=== PATIENT | female | born 1990 | race Caucasian/White ===

== ENCOUNTER 2018-07-12 22:30 | Emergency (ER) | payer SELFPAY ==
[2018-07-13] MEDS ORDERED: LIDOCAINE VISCOUS 2% PO ONE (01:34)
[2018-07-13] MEDS ORDERED: HYDROGEN PEROXIDE TP ONE (01:34)
--- NOTE | 2018-07-13 02:25 | Emergency Department Report ---
ED General Adult HPI - General Chief complaint: Skin/Abscess/Foreign Body Stated complaint: BIT ON EAR Time Seen by Provider: 07/13/18 02:05 Source: patient Mode of arrival: Ambulatory Limitations: No Limitations - History of Present Illness Initial comments: 28-year-old female presents emergency department with family members complaining of possible foreign body/insect in the left ear, but it was not visualized. Swan also seen a very small amount of blood as well. No ringing in ears. No bleeding. No dizziness. No fever, no chest pain palpitations shortness -: Sudden Radiation: non-radiation Severity scale (0 -10): 8 Improves with: none Worsens with: none - Related Data Allergies Allergy/AdvReac Type Severity Reaction Status Date / Time No Known Allergies Allergy Verified 07/12/18 22:47 ED Review of Systems ROS: Stated complaint: BIT ON EAR Other details as noted in HPI Constitutional: denies: chills, fever Eyes: denies: eye pain, eye discharge, vision change ENT: denies: ear pain, throat pain Respiratory: denies: cough, shortness of breath, wheezing Cardiovascular: denies: chest pain, palpitations Endocrine: no symptoms reported Gastrointestinal: denies: abdominal pain, nausea, diarrhea Genitourinary: denies: urgency, dysuria, discharge Musculoskeletal: denies: back pain, joint swelling, arthralgia Skin: denies: rash, lesions Neurological: denies: headache, weakness, paresthesias Psychiatric: denies: anxiety, depression Hematological/Lymphatic: denies: easy bleeding, easy bruising ED Past Medical Hx - Past Medical History Previous Medical History?: No - Surgical History Past Surgical History?: No - Social History Smoking Status: Never Smoker Substance Use Type: None ED Physical Exam - General Limitations: No Limitations General appearance: alert, in no apparent distress - Head Head exam: Present: atraumatic, normocephalic - Eye Eye exam: Present: normal appearance, PERRL, EOMI Pupils: Present: normal accommodation - ENT ENT exam: Present: mucous membranes moist, other (no foreign bodies visualized. Tympanic membranes intact. No excoriation, no abscess noted. No tragal tenderness. No pinna tenderness. No mastoid cellulitis or tenderness) - Neck Neck exam: Present: normal inspection - Respiratory Respiratory exam: Present: normal lung sounds bilaterally. Absent: respiratory distress, rales, rhonchi, chest wall tenderness, accessory muscle use, decreased breath sounds - Cardiovascular Cardiovascular Exam: Present: regular rate, normal rhythm. Absent: systolic murmur, diastolic murmur, rubs, gallop - GI/Abdominal GI/Abdominal exam: Present: soft, normal bowel sounds - Extremities Exam Extremities exam: Present: normal inspection - Back Exam Back exam: Present: normal inspection - Neurological Exam Neurological exam: Present: alert, oriented X3 - Psychiatric Psychiatric exam: Present: normal affect, normal mood - Skin Skin exam: Present: warm, dry, intact, normal color. Absent: rash ED Medical Decision Making - Medical Decision Making Heel was irrigated multiple times with no discharge or foreign bodies Critical care attestation.: If time is entered above; I have spent that time in minutes in the direct care of this critically ill patient, excluding procedure time. ED Disposition Clinical Impression: Otalgia, left ear Disposition: DC-01 TO HOME OR SELFCARE Is pt being admited?: No Does the pt Need Aspirin: No Condition: Stable Instructions: Earache (ED) Referrals: TREY CRANE MD [Primary Care Provider] - 3-5 Days
== END 2018-07-13 02:20 | disposition home or self-care (01) ==
LOC: ED 22:30
DX: H92.02 Otalgia, left ear (principal)
CPT/HCPCS: 99282